=== PATIENT | male | born 1990 | race Two or more races ===

== ENCOUNTER → 2019-07-17 | Emergency (ER) | payer SELFPAY ==
[~2019-07-17] VITALS: Ht 175.3 cm; Wt 68.0 kg
[~2019-07-17] MED LIST: BACITRACIN TOP OINT 1 UD PKG TOP ONE; LIDOCAINE 1% HCL (LOCAL ANESTH.) INJ 20ML MDV IJ ONE; TETANUS-DIPTH-ACEL PERTUSSIS 0.5ML SYR Tdap IM ONE
[2019-07-17 11:50] VITALS: BP 105/64
== END | disposition home or self-care (01) ==
LOC: ER 11:22
DX: S61.512A Laceration without foreign body of left wrist, initial encounter (principal); X58.XXXA Exposure to other specified factors, initial encounter; Y93.89 Activity, other specified; Y92.89 Other specified places as the place of occurrence of the external cause; Y99.8 Other external cause status
CPT/HCPCS: 12001; 90471; 90715; 99283; J2001